=== PATIENT | female | born 1990 | race African-American/Black ===

== ENCOUNTER 2018-12-19 20:06 | Emergency (ER) | payer SELFPAY | END 2018-12-19 20:36 | disposition home or self-care (01) | LOC: ERS 20:06 | DX: B86 Scabies (principal) | CPT/HCPCS: 99282 ==

== ENCOUNTER 2019-01-20 16:24 | Emergency (ER) | payer OTHER, SELFPAY ==
[2019-01-20] MEDS ORDERED: Ketorolac Tromethamine 30 MG/ML VIAL ONE (16:55)
[2019-01-20] MEDS ORDERED: Cyclobenzaprine 10 MG TAB ONE (17:48)
--- NOTE | 2019-01-20 18:27 | RAD ---
THORACIC SPINE THREE VIEWS: History: Midback pain. FINDINGS: Vertebral bodies are normal in height. Disc spaces are well preserved. Pedicles are intact. IMPRESSION: Unremarkable thoracic spine. POS: [facility]
== END 2019-01-20 18:07 | disposition home or self-care (01) ==
LOC: ERS 16:24
DX: M54.6 Pain in thoracic spine (principal)
CPT/HCPCS: 72072; 96372; J1885

== ENCOUNTER 2019-02-04 10:04 | Outpatient (CLI) | payer OTHER ==
--- NOTE | 2019-02-04 14:09 | RAD ---
LUMBAR SPINE 2 VIEWS: Date: 02/04/19 HISTORY: Low back pain. FINDINGS/IMPRESSION: No fracture, subluxation, or bony destruction identified. POS: [facility]
== END 2019-02-04 10:05 | disposition home or self-care (01) ==
LOC: BICRAD 10:04
PROVIDERS: ATTEND Family Medicine
DX: M54.5 Low back pain (principal)
CPT/HCPCS: 72100

== ENCOUNTER 2020-04-01 10:03 | Outpatient (CLI) | payer OTHER ==
--- NOTE | 2020-04-01 11:47 | MRI ---
Brain MRI with and without contrast: 04/01/2020 COMPARISON: None HISTORY: Frequent headaches for years TECHNIQUE: Multiplanar multisequence MR imaging of the brain obtained with and without contrast FINDINGS: The diffusion weighted imaging demonstrates no evidence for acute infarction. The gradient echo imaging demonstrates no evidence for intracranial hemorrhage. Please note that the diffusion weighted imaging and gradient echo imaging is markedly limited however secondary to metallic artifact , presumably associated with braces. Imaged paranasal sinuses and mastoid air cells appear grossly unremarkable, partially obscured by katerine dware artifact. Arterial flow voids at the axial level of the skull base appear grossly unremarkable on the T2-weight ed imaging. Postcontrast imaging demonstrates no abnormal enhancement. IMPRESSION: No acute findings.
--- NOTE | 2020-04-01 13:08 | MRI ---
MRI CERVICAL SPINE NONCONTRAST: Date: 04/01/2020 HISTORY: 30-year-old female with ICD-10: M54.2 cervical spine pain, and G95.0, syrinx. COMPARISON: None available. FINDINGS: At C6, there is a centrally located syrinx which measures approximately 3 x 2 mm in cross-section. It s superior aspect is at the mid C6 level. Inferiorly, it tapers down to the mid C7 level. Superior to C6, this is contiguous with minimal dilation of the central canal of the spinal cord (mild hydromyel ia), which reaches up to the mid C4 level. Other than this small syrinx, there is no significant intramedullary signal abnormality. No significant focal disc herniation, central spinal canal stenosis, degenerative disc disease, degen erative facet disease, neural foraminal stenosis, cord impingement, or nerve root impingement, at any level. Bone marrow signal is normal. No Chiari I malformation. IMPRESSION: 1. 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 2. The cervical spine is otherwise normal. POS: [facility]
[2020-04-01] MEDS ORDERED: Magnevist 469MG/ML 20 ML VIAL ONE (13:13)
== END 2020-04-01 10:04 | disposition home or self-care (01) ==
LOC: TBSIIMAG 10:03
PROVIDERS: ATTEND Neurological Surgery
DX: M54.2 Cervicalgia (principal); G95.0 Syringomyelia and syringobulbia; R51.9 Headache, unspecified
CPT/HCPCS: 70553; 72141

== ENCOUNTER 2022-12-16 15:33 | Outpatient (CLI) | payer OTHER | END 2022-12-16 15:34 | disposition home or self-care (01) | LOC: ULT 15:33 | PROVIDERS: ATTEND Family Medicine | DX: D25.9 Leiomyoma of uterus, unspecified (principal); R10.2 Pelvic and perineal pain; N83.201 Unspecified ovarian cyst, right side; N85.2 Hypertrophy of uterus | CPT/HCPCS: 76856 ==

== ENCOUNTER 2023-03-29 09:20 | Day surgery (SDC) | payer OTHER ==
[2023-03-29] MEDS ORDERED: Acetaminophen 500 MG TAB PO SCH (10:00)
[2023-03-29] MEDS ORDERED: Acetaminophen 500 MG TAB ONE (10:51)
[2023-03-29 17:35] VITALS: BP 126/67; TEMP 98.1
== END 2023-03-29 14:30 | disposition home or self-care (01) ==
LOC: ONC/OP 09:20
PROVIDERS: ATTEND Internal Medicine
DX: D64.9 Anemia, unspecified (principal); D69.59 Other secondary thrombocytopenia
CPT/HCPCS: 36430; 86850; 86900; 86901; P9016